=== PATIENT | female | born 1970 | race Two or more races ===

== ENCOUNTER → 2019-03-10 | Outpatient (CLI) | payer OTHER | END | disposition home or self-care (01) | LOC: RAD 08:48 | DX: M54.5 Low back pain (principal); M53.1 Cervicobrachial syndrome ==

== ENCOUNTER 2020-08-31 08:00 | Outpatient (CLI) | payer OTHER | END 2020-08-31 08:30 | disposition home or self-care (01) | LOC: PPH VACUNA 08:00 | DX: Z23 Encounter for immunization (principal) ==